=== PATIENT | female | born 1960 | race Caucasian/White ===

== ENCOUNTER → 2016-04-26 | Outpatient (CLI) | payer BC ==
--- NOTE | 2016-04-26 17:19 | XR ---
EXAMINATION TYPE: XR chest 2V DATE OF EXAM: 04/26/2016 5:14 PM COMPARISON: 05/03/2014 HISTORY: Cough TECHNIQUE: Frontal and lateral views of the chest are obtained. FINDINGS: Heart and mediastinum are normal. Lungs are clear. Diaphragm is normal. Bony thorax is int act. IMPRESSION: Normal chest. No change.
== END ==
LOC: RADXRMAIN 16:46
PROVIDERS: ATTEND Family Medicine
DX: J45.31 Mild persistent asthma with (acute) exacerbation (principal)
CPT/HCPCS: 71020

== ENCOUNTER → 2016-06-03 | Outpatient (CLI) | payer BC ==
[2016-06-03 19:32] LABS: Blood Urea Nitrogen 17 mg/dL (7-17); Non-African American GFR(MDRD) >60 (>60 ml/min/1.73 sqM)
--- NOTE | 2016-06-03 20:51 | CT ---
EXAMINATION TYPE: CT chest w con DATE OF EXAM: 06/03/2016 8:12 PM COMPARISON: NONE HISTORY: Pt states of SOB and cough x1 year. CT DLP: 884 mGycm Automated exposure control for dose reduction was used. CONTRAST: CT scan of the chest is performed with IV Contrast, patient injected with 100 mL of Omnipaque 300. Th ere are 3-D post processed images. FINDINGS: The lungs are clear of consolidation. There is no pleural effusion. There is no pericardial effusion. There is no evidence of aortic aneurysm or dissection. I see no filling defects in the pulmonary art eries. There are no hilar masses. There is no mediastinal adenopathy. The bony thorax appears intact. There is some subcutaneous edema over the lower lumbar spine.. IMPRESSION: No evidence of pulmonary embolism. Negative CT scan of the chest. Mild spondylotic hernandez es noted in the thoracic spine. Subcutaneous edema noted in the lower back.
[2016-06-04 04:20] LABS: Clam IgE <0.10 kU/L; Egg White IgE <0.10 kU/L; Peanut IgE <0.10 kU/L; Scallop IgE <0.10 kU/L; Soybean IgE <0.10 kU/L
[2016-06-04 07:28] LABS: Alternaria alternata IgE <0.10 kU/L; Aspergillus fumagatus IgE <0.10 kU/L; Cat Epith & Dander IgE 0.17 kU/L; Cladosporian herbarum IgE <0.10 kU/L; Dermato. farinae IgE <0.10 kU/L; Maple (Box Elder) IgE <0.10 kU/L; Orchard Grs(Cocksfoot) IgE <0.10 kU/L; Ragweed,Common IgE <0.10 kU/L
== END | disposition home or self-care (01) ==
LOC: RADCTMAIN 18:36
PROVIDERS: ATTEND Internal Medicine Critical Care Medicine
DX: R05 Cough (principal)
CPT/HCPCS: 82565; 84520; 86003; 82785; 71260; 36415; Q9967

== ENCOUNTER 2019-02-28 10:00 | Observation (INO) | payer OTHER ==
[2019-02-28] MEDS ORDERED: SODIUM CHLORIDE 0.9% 500 ML 500 ML IV STA (10:30)
--- NOTE | 2019-02-28 10:43 | ED ---
Chest Pain HPI - General Chief Complaint: Chest Pain Stated Complaint: Abnormal EKG Time Seen by Provider: 02/28/19 10:21 Source: patient Mode of arrival: ambulatory Limitations: no limitations - History of Present Illness Initial Comments: Patient is a 58-year-old female presenting to the emergency Department with complaints of intermittent chest pain for 2 days. Patient was sent in by her PCP, Dr. Lane. Patient states her son on Tuesday and since then she has been having intermittent bouts of chest pressure and palpitations. She sta stephanie she has a history of irregular heartbeat and hypertension. She has had multiple stress tests in the past however her last one was approximately 15 years ago in [place]. She states these bouts of chest pressure last anywhere from 30 seconds to a few minutes. She states after she rest for a little bit she feels better. She has not been eating and drinking very much for the past 2 days secondary to the stress. She denies nausea, vomiting. She does admit to mild diarrhea secondary to not eating and taking metformin. She also admits to mild shortness of breath which is chronic in nature secondary to her COPD. She denies any abdominal pain, blurry vision, headache. She has no other complaints at this time. Upon arrival to the ER, her vital signs are stable. - Related Data Home Medications Medication Instructions Recorded Confirmed Atenolol [Tenormin] 50 mg PO DAILY 02/28/19 02/28/19 Atorvastatin [Lipitor] 20 mg PO DAILY 02/28/19 02/28/19 Cranberry Fruit Extract [Cranberry] 500 mg PO DAILY 02/28/19 02/28/19 Latanoprost [Xalatan 0.005%] 1 drop BOTH EYES HS 02/28/19 02/28/19 Meloxicam [Mobic] 15 mg PO DAILY 02/28/19 02/28/19 Multivitamins, Thera [Multivitamin 1 tab PO DAILY 02/28/19 02/28/19 (formulary)] Triamterene-Hctz 37.5-25Mg 1 cap PO DAILY 02/28/19 02/28/19 [Dyazide 37.5-25 Capsule] Zolpidem [Ambien] 10 mg PO HS 02/28/19 02/28/19 clonazePAM [KlonoPIN] 2 mg PO BID PRN 02/28/19 02/28/19 metFORMIN HCL [Glucophage] 500 mg PO BID 02/28/19 02/28/19 Allergies Allergy/AdvReac Type Severity Reaction Status Date / Time codeine Allergy Vomiting Verified 02/28/19 15:04 diphenhydramine Allergy Anaphylaxis Verified 02/28/19 15:04 [From Benadryl] meperidine [From Demerol] Allergy Vomiting Verified 02/28/19 15:04 Penicillins Allergy Anaphylaxis Verified 02/28/19 15:04 Serotonin 5HT-3 Antagonists Allergy Unknown Verified 02/28/19 15:04 Sulfa (Sulfonamide Allergy Anaphylaxis Verified 02/28/19 15:04 Antibiotics) Review of Systems ROS Statement: Those systems with pertinent positive or pertinent negative responses have been documented in the HPI. ROS Other: All systems not noted in ROS Statement are negative. EKG Findings - EKG Comments: EKG Findings:: Ventricular rate 72, purulent of low 152, QTC 466. Sinus rhythm with occasional PVCs. Prolonged QT, no acute ST segment elevations Past Medical History Past Medical History: Asthma, Cancer, COPD, Diabetes Mellitus, Eye Disorder, Hyperlipidemia, Hypertension, Osteoarthritis (OA) Additional Past Medical History / Comment(s): heart arrythmia, uterine cancer(remission) History of Any Multi-Drug Resistant Organisms: None Reported Past Surgical History: Section, Hysterectomy Additional Past Surgical History / Comment(s): ectopic Past Psychological History: Anxiety Smoking Status: Never smoker Past Alcohol Use History: None Reported Past Drug Use History: None Reported General Exam - General Exam Comments Initial Comments: GENERAL: Well-appearing, well-nourished and in no acute distress. HEAD: Atraumatic, normocephalic. EYES: Pupils equal round and reactive to light, extraocular movements intact, sclera anicteric, conjunctiva are normal. ENT: TMs normal, nares patent, oropharynx clear without exudates. Moist mucous membranes. NECK: Normal range of motion, supple without lymphadenopathy or JVD. LUNGS: Breath sounds clear to auscultation bilaterally and equal. No wheezes rales or rhonchi. HEART: Regular rate and rhythm without murmurs, rubs or gallops. ABDOMEN: Soft, nontender, normoactive bowel sounds. No guarding, no rebound. No masses appreciated. : Deferred EXTREMITIES: Normal range of motion, no pitting or edema. No clubbing or cyanosis. NEUROLOGICAL: Cranial nerves II through XII grossly intact. Normal speech, normal gait. PSYCH: Normal mood, normal affect. SKIN: Warm, Dry, normal turgor, no rashes or lesions noted. Limitations: no limitations Course Vital Signs 02/28/19 02/28/19 02/28/19 10:07 11:00 11:30 Temperature 97.7 F Pulse Rate 76 70 65 Respiratory 20 20 15 Rate Blood Pressure 122/83 134/98 121/80 O2 Sat by Pulse 96 95 96 Oximetry 02/28/19 02/28/19 02/28/19 12:00 12:30 13:00 Temperature Pulse Rate 70 70 75 Respiratory 17 12 17 Rate Blood Pressure 122/80 118/75 127/91 O2 Sat by Pulse 95 93 L 96 Oximetry 02/28/19 02/28/19 02/28/19 13:30 14:00 14:30 Temperature Pulse Rate 79 80 69 Respiratory 28 H 24 12 Rate Blood Pressure 117/81 121/76 126/99 O2 Sat by Pulse 93 L 95 95 Oximetry 02/28/19 02/28/19 15:00 15:30 Temperature Pulse Rate 75 83 Respiratory 19 18 Rate Blood Pressure 131/100 121/84 O2 Sat by Pulse 93 L 95 Oximetry Chest Pain [facility] Patient is a 58-year-old female presenting with intermittent chest pain and pressure for 2 days. She was sent in by her PCP today after an abnormal EKG in the office. Her son 2 days ago when her symptoms began. Vital signs are stable upon arrival. Patient has not had chest pain during ER stay. No acute changes on initial EKG. Lab work shows total bilirubin and liver enzymes are slightly elevated, no other acute abnormalities found. I discussed discussed the findings with patient over she is not having any abdominal pain today. Troponin is normal, UA is normal. Chest x-ray shows no acute abnormalities. I discussed these findings with the patient. I recommended patient be admitted for serial troponins as well as possible stress test. Patient is agreeable with this plan of care. Patient will be admitted under Dr. Lane. Case discussed with Dr. Allen. Disposition Clinical Impression: Chest pain Disposition: ADMITTED IP TO THIS HOSP Condition: Stable Is patient prescribed a controlled substance at d/c from ED?: No Referrals: Greg Lane MD [Primary Care Provider] - 1-2 days Decision Date: 02/28/19 Decision Time: 13:57
--- NOTE | 2019-02-28 11:15 | XR ---
EXAMINATION TYPE: XR chest 2V DATE OF EXAM: 02/28/2019 COMPARISON: 04/26/2016 TECHNIQUE: PA and lateral views submitted. HISTORY: Chest pain FINDINGS: The lungs are clear and there is no pneumothorax, pleural effusion, or focal pneumonia. Biapical pl eural thickening stable. Heart size stable. Arthropathy of the shoulders and hypertrophic degenerativ e change of the spine. IMPRESSION: 1. No acute process.
[2019-02-28 11:46] LABS: ALT 63 U/L (4-34); AST 55 U/L (14-36); African American GFR (CKD) >90 (>60 ml/min/1.73 sqM); Albumin 4.3 g/dL (3.5-5.0); Alkaline Phosphatase 106 U/L (38-126); Anion Gap 11 mmol/L; Blood Urea Nitrogen 16 mg/dL (7-17); Calcium 9.7 mg/dL (8.4-10.2); Carbon Dioxide 22 mmol/L (22-30); Chloride 105 mmol/L (98-107); Glucose 161 mg/dL (74-99); Magnesium 1.6 mg/dL (1.6-2.3); Non-African American GFR(CKD) >90 (>60 ml/min/1.73 sqM); Potassium 4.3 mmol/L (3.5-5.1); Sodium 138 mmol/L (137-145); Total Bilirubin 1.4 mg/dL (0.2-1.3); Total Protein 6.9 g/dL (6.3-8.2)
[2019-02-28 11:49] LABS: Basophils % (A) 1 %; Eosinophils # (A) 0.1 k/uL (0-0.7); Eosinophils % (A) 1 %; HCT 46.5 % (34.0-46.0); HGB 15.2 gm/dL (11.4-16.0); Lymphocytes # (A) 1.7 k/uL (1.0-4.8); Lymphocytes % (A) 26 %; MCHC 32.8 g/dL (31.0-37.0); MCV 94.6 fL (80.0-100.0); Mean Platelet Volume 8.1; Monocytes # (A) 0.3 k/uL (0-1.0); Monocytes % (A) 4 %; Neutrophils # (A) 4.4 k/uL (1.3-7.7); Neutrophils % (A) 67 %; Platelet Count 229 k/uL (150-450); RBC 4.91 m/uL (3.80-5.40); RDW 12.7 % (11.5-15.5); WBC 6.6 k/uL (3.8-10.6)
[2019-02-28 11:57] LABS: Appearance,Urine Clear (Clear); Bilirubin,Urine Negative (Negative); Blood,Urine Negative (Negative); Color,Urine Yellow; Glucose,Urine (UA) Negative (Negative); Ketones,Urine Negative (Negative); Leukocyte Esterase,Urine Negative (Negative); Nitrite,Urine Negative (Negative); Protein,Urine Negative (Negative); Specific Gravity,Urine 1.021 (1.001-1.035); Urobilinogen,Urine <2.0 mg/dL (<2.0)
[2019-02-28 11:59] LABS: INR 0.9 (<1.2); Partial Thromboplastin Time 23.2 sec (22.0-30.0); Prothrombin Time 9.7 sec (9.0-12.0)
[2019-02-28] MEDS ORDERED: NITROGLYCERIN SL TABS 0.4 MG TAB SUBLINGUAL PRN (13:57)
[2019-02-28] MEDS ORDERED: ACETAMINOPHEN TAB 325 MG TAB PO PRN (13:57)
[2019-03-01 00:12] VITALS: RESP 18
[2019-03-01 06:20] LABS: Cholesterol 111 mg/dL (<200); HDL Cholesterol 29 mg/dL (40-60); LDL Cholesterol,Calculated 60 mg/dL (0-99); Triglycerides 112 mg/dL (<150)
[2019-03-01 06:43] LABS: Glucose,Whole Blood 156 mg/dL (75-99)
[2019-03-01 07:58] VITALS: BP 111/71; PULSE 58; TEMP 97.6
[2019-03-01] MEDS ORDERED: clonazePAM 1 MG TAB PO PRN (08:04)
[2019-03-01] MEDS ORDERED: metFORMIN 500 MG TAB PO SCH (09:00)
[2019-03-01] MEDS ORDERED: ATORVASTATIN 20 MG TAB PO SCH (09:00)
[2019-03-01] MEDS ORDERED: TRIAMTERENE-HCTZ 37.5-25MG 1 EACH CAP PO SCH (09:00)
[2019-03-01] MEDS ORDERED: MULTIVITAMINS, THERA 1 EACH TAB PO SCH (09:00)
[2019-03-01] MEDS ORDERED: ASPIRIN 325 MG TAB PO SCH (09:00)
[2019-03-01] MEDS ORDERED: DOBUTamine DRIP for NUC MED 500 MG in DEXTROSE/WATER 1 250ML.BAG IV ONE (09:51)
--- NOTE | 2019-03-01 10:19 | P.CRDCN ---
History of Present Illness History of present illness: HISTORY OF PRESENTING ILLNESS This is a pleasant 58-year-old female past medical history significant for hypertension, palpitations, COPD, diabetes mellitus, dyslipidemia, arthritis and morbid obesity. She does not follow in the office with a hospital food service worker. She moved here from [place] 5 years ago. When she lived there she did follow with a hospital food service worker regularly due to her palpitations. She states she has undergone stress testing in the past but was over 5 years ago. We have been asked to see in consultation for chest pain. She unfortunately lost her son on Tuesday who lives in [place]. She has been extremely upset and emotional since this happened. On Tuesday she began feeling frequent palpitations associated with a heavy sensation in her chest in the mid-sternal region. There was no radiation to the arms, back, neck or jaw. At times she would feel short of breath as well. She denies dizziness, nausea, vomiting or diaphoresis. She saw her PCP in the office yesterday and was sent in for further evaluation. She has not had any further symptoms of chest pain while in the hospital. DIAGNOSTICS EKG reveals sinus mechanism with no acute ST or T-wave changes. Telemetry tracings unremarkable. Chest xray negative for an acute process. Laboratory reviewed, cardiac enzymes negative x3, CBC unremarkable, sodium 138, potassium 4.3, creatinine 0.57, total bilirubin 1.4, AST 55, ALT 63, LDL 60. Current cardiac medications include atenolol 50 mg daily, atorvastatin 20 mg daily and dyazide 37.5/25 mg daily. REVIEW OF SYSTEMS At the time of my exam: CONSTITUTIONAL: Denies fever or chills. CARDIOVASCULAR: Denies chest pain, shortness of breath, orthopnea, PND or pa lpitations. RESPIRATORY: Denies cough. GASTROINTESTINAL: Denies abdominal pain, diarrhea, constipation, nausea or vomiting. MUSCULOSKELETAL: Denies myalgias. NEUROLOGIC: Denies numbness, tingling or weakness. ENDOCRINE: Denies fatigue, weight change, polydipsia or polyurina. GENITOURINARY: Denies burning, hematuria or urgency with micturation. HEMATOLOGIC: Denies history of anemia or bleeding. PHYSICAL EXAMINATION Blood pressure 111/71 heart rate 58 afebrile and maintaining oxygen saturation on room air. CONSTITUTIONAL: No apparent distress. Morbidly obese. HEENT: Head is normocephalic. Pupils are equal, round. Sclerae anicteric. Mucous membranes of the mouth are moist. No JVD. No carotid bruit. CHEST EXAMINATION: Lungs are clear to auscultation. No chest wall tenderness is noted on palpation or with deep breathing. HEART EXAMINATION: Regular rate and rhythm. S1, S2 heard. Faint systolic ejection murmur at the left sternal border, no gallops or rub. ABDOMEN: Soft, nontender. Positive bowel sounds. EXTREMITIES: 2+ peripheral pulses, no lower extremity edema and no calf tenderness. NEUROLOGIC EXAMINATION: Patient is awake, alert and oriented x3. ASSESSMENT Chest pain, atypical for angina. An acute event has been ruled out. Palpitations, telemetry tracings unremarkable Hypertension Dyslipidemia Diabetes mellitus COPD Morbid obesity, BMI 53 PLAN An acute coronary event has been ruled out. Obtain 2D echocardiogram and doppler study to assess cardiac structure and function. Perform dobutamine stress echo to assess for stress induced ischemia. Telemetry tracings unremarkable. If stress test is normal she is stable for discharge from a cardiac perspective. Symptoms likely a stress reaction due to significant tragic loss of her son. Thank you kindly for this consultation. Nurse Practitioner note has been reviewed, I agree with a documented findings and plan of care. Patient was seen and examined. Past Medical History Past Medical History: Asthma, Cancer, COPD, Diabetes Mellitus, Eye Disorder, Hyperlipidemia, Hypertension, Osteoarthritis (OA) Additional Past Medical History / Comment(s): heart arrythmia, uterine cancer(remission) History of Any Multi-Drug Resistant Organisms: None Reported Past Surgical History: Section, Hysterectomy Additional Past Surgical History / Comment(s): ectopic Past Psychological History: Anxiety Smoking Status: Never smoker Past Alcohol Use History: None Reported Past Drug Use History: None Reported Medications and Allergies Home Medications Medication Instructions Recorded Confirmed Type Atenolol [Tenormin] 50 mg PO DAILY 02/28/19 02/28/19 History Atorvastatin [Lipitor] 20 mg PO DAILY 02/28/19 02/28/19 History Cranberry Fruit Extract [Cranberry] 500 mg PO DAILY 02/28/19 02/28/19 History Latanoprost [Xalatan 0.005%] 1 drop BOTH EYES HS 02/28/19 02/28/19 History Meloxicam [Mobic] 15 mg PO DAILY 02/28/19 02/28/19 History Multivitamins, Thera [Multivitamin 1 tab PO DAILY 02/28/19 02/28/19 History (formulary)] Triamterene-Hctz 37.5-25Mg 1 cap PO DAILY 02/28/19 02/28/19 History [Dyazide 37.5-25 Capsule] Zolpidem [Ambien] 10 mg PO HS 02/28/19 02/28/19 History clonazePAM [KlonoPIN] 2 mg PO BID PRN 02/28/19 02/28/19 History metFORMIN HCL [Glucophage] 500 mg PO BID 02/28/19 02/28/19 History Allergies Allergy/AdvReac Type Severity Reaction Status Date / Time codeine Allergy Vomiting Verified 02/28/19 15:04 diphenhydramine Allergy Anaphylaxis Verified 02/28/19 15:04 [From Benadryl] meperidine [From Demerol] Allergy Vomiting Verified 02/28/19 15:04 Penicillins Allergy Anaphylaxis Verified 02/28/19 15:04 Serotonin 5HT-3 Antagonists Allergy Unknown Verified 02/28/19 15:04 Sulfa (Sulfonamide Allergy Anaphylaxis Verified 02/28/19 15:04 Antibiotics) Physical Exam Vitals: Vital Signs Temp Pulse Pulse Resp BP BP BP 03/01/19 09:11 18 03/01/19 07:05 97.6 F 58 L 18 111/71 03/01/19 05:53 97/57 03/01/19 04:00 97.7 F 66 18 116/71 03/01/19 03:48 69 18 03/01/19 00:00 97.7 F 69 18 95/59 02/28/19 23:30 69 18 02/28/19 20:20 97.3 F L 76 16 120/82 02/28/19 17:30 62 19 105/84 02/28/19 17:00 68 18 129/91 02/28/19 16:30 69 8 L 112/79 02/28/19 16:00 74 14 115/95 02/28/19 15:30 83 18 121/84 02/28/19 15:00 75 19 131/100 02/28/19 14:30 69 12 126/99 02/28/19 14:00 80 24 121/76 02/28/19 13:30 79 28 H 117/81 01/08/20 13:00 75 17 127/91 01/08/20 12:30 70 12 118/75 02/28/19 12:00 70 17 122/80 02/28/19 11:30 65 15 121/80 02/28/19 11:00 70 20 134/98 02/28/19 10:07 97.7 F 76 20 122/83 Pulse Ox 03/01/19 09:11 03/01/19 07:05 95 03/01/19 05:53 03/01/19 04:00 95 03/01/19 03:48 03/01/19 00:00 96 02/28/19 23:30 02/28/19 20:20 95 02/28/19 17:30 96 02/28/19 17:00 94 L 02/28/19 16:30 93 L 02/28/19 16:00 95 02/28/19 15:30 95 02/28/19 15:00 93 L 02/28/19 14:30 95 02/28/19 14:00 95 02/28/19 13:30 93 L 02/28/19 13:00 96 02/28/19 12:30 93 L 02/28/19 12:00 95 02/28/19 11:30 96 02/28/19 11:00 95 02/28/19 10:07 96 Intake and Output 02/28/19 03/01/19 03/01/19 22:59 06:59 14:59 Intake Total 240 Balance 240 Intake: Oral 240 Other: Voiding Method Toilet # Voids 1 Weight 140.16 kg Results 02/28/19 10:53 02/28/19 10:53 Cardiac Enzymes 02/28/19 02/28/19 02/28/19 Range/Units 10:53 10:53 16:09 AST 55 H (14-36) U/L Troponin I <0.012 <0.012 (0.000-0.034) ng/mL 02/28/19 Range/Units 23:13 AST (14-36) U/L Troponin I <0.012 (0.000-0.034) ng/mL Coagulation 02/28/19 Range/Units 10:53 PT 9.7 (9.0-12.0) sec APTT 23.2 (22.0-30.0) sec Lipids 03/01/19 Range/Units 05:36 Triglycerides 112 (<150) mg/dL Cholesterol 111 (<200) mg/dL HDL Cholesterol 29 L (40-60) mg/dL CBC 02/28/19 Range/Units 10:53 WBC 6.6 (3.8-10.6) k/uL RBC 4.91 (3.80-5.40) m/uL Hgb 15.2 (11.4-16.0) gm/dL Hct 46.5 H (34.0-46.0) % Plt Count 229 (150-450) k/uL Comprehensive Metabolic Panel 02/28/19 Range/Units 10:53 Sodium 138 (137-145) mmol/L Potassium 4.3 (3.5-5.1) mmol/L Chloride 105 (98-107) mmol/L Carbon Dioxide 22 (22-30) mmol/L BUN 16 (7-17) mg/dL Creatinine 0.57 (0.52-1.04) mg/dL Glucose 161 H (74-99) mg/dL Calcium 9.7 (8.4-10.2) mg/dL AST 55 H (14-36) U/L ALT 63 H (4-34) U/L Alkaline Phosphatase 106 (38-126) U/L Total Protein 6.9 (6.3-8.2) g/dL Albumin 4.3 (3.5-5.0) g/dL Current Medications Generic Name Dose Route Start Last Admin Trade Name Freq PRN Reason Stop Dose Admin Acetaminophen 650 mg 02/28/19 13:57 Tylenol Tab PO Q4HR PRN Pain Aspirin 325 mg 03/01/19 09:00 Aspirin PO DAILY [facility] Atorvastatin Calcium 20 mg 03/01/19 09:00 Lipitor PO DAILY [facility] Clonazepam 2 mg 03/01/19 08:04 Klonopin PO BID PRN Anxiety Dobutamine HCl/Dextrose 500 mg 250 mls @ 42.048 mls/hr 03/01/19 09:51 / IV Solution IV 03/01/19 15:47 .[id number] ONE Protocol 10 MCG/KG/MIN Latanoprost 1 drops 03/01/19 21:00 Xalatan 0.005% BOTH EYES HS [facility] Metformin HCl 500 mg 03/01/19 09:00 Glucophage PO BID [facility] Multivitamins 1 each 03/01/19 09:00 Theragran PO DAILY [facility] Nitroglycerin 0.4 mg 02/28/19 13:57 Nitrostat SUBLINGUAL Q5M PRN Chest Pain Triamterene/HCTZ 1 each 03/01/19 09:00 Dyazide PO DAILY [facility] Zolpidem Tartrate 10 mg 03/01/19 21:00 Ambien PO HS [facility] Intake and Output 02/28/19 03/01/19 03/01/19 22:59 06:59 14:59 Intake Total 240 Balance 240 Intake: Oral 240 Other: Voiding Method Toilet # Voids 1 Weight 140.16 kg 02/28/19 10:53 02/28/19 10:53
[2019-03-01] MEDS ORDERED: TRIAMTERENE HCTZ PO SCH ×2 (11:00→11:30)
--- NOTE | 2019-03-01 11:01 | ECHOF ---
Referral Reason:cp MEASUREMENTS -------- HEIGHT: 160.0 cm WEIGHT: 140.2 kg BP: RVIDd: 3.1 cm (< 3.3) IVSd: 1.2 cm (0.6 - 1.1) LVIDd: 4.4 cm (3.9 - 5.3) LVPWd: 1.5 cm (0.6 - 1.1) IVSs: 2.0 cm LVIDs: 1.8 cm LVPWs: 2.0 cm Ao Diam: 3.1 cm (2.0 - 3.7) AV Cusp: 2.3 cm (1.5 - 2.6) LA Diam: 3.9 cm (2.7 - 3.8) MV EXCURSION: 23.601 mm (> 18.000) MV EF SLOPE: 99 mm/s (70 - 150) EPSS: 0.3 cm MV E Vincent: 1.06 m/s MV DecT: 207 ms MV A Vincent: 0.85 m/s MV E/A Ratio: 1.25 RAP: 5.00 mmHg RVSP: 11.59 mmHg FINDINGS -------- Sinus rhythm. This was a technically difficult study with suboptimal views. The left ventricular size is normal. There is mild concentric left ventricular hypertrophy. Overa ll left ventricular systolic function is normal with, an EF between 55 - 60 %. The right ventricle is normal in size. The left atrial size is normal. The right atrial size is normal. 5.0mg of Lumason was utilized for enhancement of images The aortic valve is trileaflet and appears structurally normal. The mitral valve is normal. There is trace mitral regurgitation. The tricuspid valve appears structurally normal. Trace tricuspid regurgitation present. Right aidee tricular systolic pressure is normal at < 35 mmHg. There is no pulmonic regurgitation present. The aortic root size is normal. There is no pericardial effusion. CONCLUSIONS -------- 1. Sinus rhythm. 2. This was a technically difficult study with suboptimal views. 3. The left ventricular size is normal. 4. There is mild concentric left ventricular hypertrophy. 5. Overall left ventricular systolic function is normal with, an EF between 55 - 60 %. 6. The right ventricle is normal in size. 7. The left atrial size is normal. 8. The right atrial size is normal. 9. 5.0mg of Lumason was utilized for enhancement of images 10. The aortic valve is trileaflet and appears structurally normal. 11. The mitral valve is normal. 12. There is trace mitral regurgitation. 13. The tricuspid valve appears structurally normal. 14. Trace tricuspid regurgitation present. 15. Right ventricular systolic pressure is normal at < 35 mmHg. 16. There is no pulmonic regurgitation present. 17. The aortic root size is normal. 18. There is no pericardial effusion. BURGL[employer] ALARM INSPECTOR: Kelly Puga RDCS
[2019-03-01 11:41] LABS: Glucose,Whole Blood 140 mg/dL (75-99)
--- NOTE | 2019-03-01 12:26 | P.HPIM ---
History of Present Illness 58-year-old female on was sent to the emergency room from family physician office with complaints of chest pain. Patient is doing with sudden 28-year-old son from [place]. Patient's to have evaluation by cardiology Review of Systems Cardiovascular: Reports chest pain, Reports palpitations Past Medical History Past Medical History: Asthma, Cancer, COPD, Diabetes Mellitus, Eye Disorder, Hyperlipidemia, Hypertension, Osteoarthritis (OA) Additional Past Medical History / Comment(s): heart arrythmia, uterine cancer( remission) History of Any Multi-Drug Resistant Organisms: None Reported Past Surgical History: Section, Hysterectomy Additional Past Surgical History / Comment(s): ectopic Past Psychological History: Anxiety Smoking Status: Never smoker Past Alcohol Use History: None Reported Past Drug Use History: None Reported Medications and Allergies Home Medications Medication Instructions Recorded Confirmed Type Atenolol [Tenormin] 50 mg PO DAILY 02/28/19 02/28/19 History Atorvastatin [Lipitor] 20 mg PO DAILY 02/28/19 02/28/19 History Cranberry Fruit Extract [Cranberry] 500 mg PO DAILY 02/28/19 02/28/19 History Latanoprost [Xalatan 0.005%] 1 drop BOTH EYES HS 02/28/19 02/28/19 History Meloxicam [Mobic] 15 mg PO DAILY 02/28/19 02/28/19 History Multivitamins, Thera [Multivitamin 1 tab PO DAILY 02/28/19 02/28/19 History (formulary)] Triamterene-Hctz 37.5-25Mg 1 cap PO DAILY 02/28/19 02/28/19 History [Dyazide 37.5-25 Capsule] Zolpidem [Ambien] 10 mg PO HS 02/28/19 02/28/19 History clonazePAM [KlonoPIN] 2 mg PO BID PRN 02/28/19 02/28/19 History metFORMIN HCL [Glucophage] 500 mg PO BID 02/28/19 02/28/19 History Allergies Allergy/AdvReac Type Severity Reaction Status Date / Time codeine Allergy Vomiting Verified 02/28/19 15:04 diphenhydramine Allergy Anaphylaxis Verified 02/28/19 15:04 [From Benadryl] meperidine [From Demerol] Allergy Vomiting Verified 02/28/19 15:04 Penicillins Allergy Anaphylaxis Verified 02/28/19 15:04 Serotonin 5HT-3 Antagonists Allergy Unknown Verified 02/28/19 15:04 Sulfa (Sulfonamide Allergy Anaphylaxis Verified 02/28/19 15:04 Antibiotics) Physical Exam Vitals: Vital Signs Temp Pulse Pulse Resp BP BP BP 03/01/19 09:11 18 03/01/19 07:05 97.6 F 58 L 18 111/71 03/01/19 05:53 97/57 03/01/19 04:00 97.7 F 66 18 116/71 03/01/19 03:48 69 18 03/01/19 00:00 97.7 F 69 18 95/59 02/28/19 23:30 69 18 02/28/19 20:20 97.3 F L 76 16 120/82 02/28/19 17:30 62 19 105/84 02/28/19 17:00 68 18 129/91 02/28/19 16:30 69 8 L 112/79 02/28/19 16:00 74 14 115/95 02/28/19 15:30 83 18 121/84 02/28/19 15:00 75 19 131/100 02/28/19 14:30 69 12 126/99 02/28/19 14:00 80 24 121/76 02/28/19 13:30 79 28 H 117/81 02/28/19 13:00 75 17 127/91 02/28/19 12:30 70 12 118/75 Pulse Ox 03/01/19 09:11 03/01/19 07:05 95 03/01/19 05:53 03/01/19 04:00 95 03/01/19 03:48 03/01/19 00:00 96 02/28/19 23:30 02/28/19 20:20 95 02/28/19 17:30 96 02/28/19 17:00 94 L 02/28/19 16:30 93 L 02/28/19 16:00 95 02/28/19 15:30 95 02/28/19 15:00 93 L 02/28/19 14:30 95 02/28/19 14:00 95 02/28/19 13:30 93 L 02/28/19 13:00 96 02/28/19 12:30 93 L Intake and Output 02/28/19 03/01/19 03/01/19 22:59 06:59 14:59 Intake Total 240 Balance 240 Intake: Oral 240 Other: Voiding Method Toilet # Voids 1 Weight 140.16 kg 140.16 kg - Constitutional General appearance: mild distress - EENT Eyes: PERRLA Ears: bilateral: normal - Neck Neck: normal ROM - Respiratory Respiratory: bilateral: CTA - Cardiovascular Rhythm: regular - Gastrointestinal General gastrointestinal: soft - Integumentary Integumentary: normal - Neurologic Neurologic: CNII-XII intact - Musculoskeletal Musculoskeletal: gait normal - Psychiatric Psychiatric: A&O x's 3, appropriate affect Results CBC & Chem 7: 02/28/19 10:53 02/28/19 10:53 Labs: Abnormal Lab Results - Last 24 Hours (Table) 03/01/19 03/01/19 03/01/19 Range/Units 05:36 06:41 11:40 POC Glucose (mg/dL) 156 H 140 H (75-99) mg/dL HDL Cholesterol 29 L (40-60) mg/dL Chest x-ray: report reviewed Thrombosis Risk Factor Assmnt - Choose All That Apply Any of the Below Risk Factors Present?: Yes Each Factor Represents 1 point: Age 41-60 years, Obesity (BMI >25) Other Risk Factors: No Other congenital or acquired thrombophilia - If yes, enter type in comment: No Thrombosis Risk Factor Assessment Total Risk Factor Score: 2 Thrombosis Risk Factor Assessment Level: Low Risk Assessment and Plan Plan: Assessment Chest pain atypical troponins negative 3 Grief reaction History of asthma Uterine cancer COPD Diabetes type 2 Morbid obesity BMI 53.9 Hyperlipidemia Hypertension Osteoarthritis Plan Patient has had stress tests awaiting results Hopeful discharge soon
--- NOTE | 2019-03-01 14:08 | ECHOS ---
STRESS ECHOCARDIOGRAM INDICATIONS: Chest pain. BASELINE HEART RATE: 63 BASELINE BLOOD PRESSURE: 122/81 MAXIMUM HEART RATE: 145 MAXIMUM BLOOD PRESSURE: 173/43 85% MPHR: 139 100% MPHR: 163 MAXIMUM STAGE REACHED: II TOTAL EXERCISE TIME: 8:40 CLINICAL INFORMATION: Patient was exercised. The dobutamine echocardiographic study was performed. Peak heart rate of 145 was achieved. Maximum blood pressure of 173/43 mmHg was noted. Resting EKG shows normal sinus rhythm with normal WA interval and QRS duration and normal ST-T waves. During dobutamine infusion upsloping ST segments were noted. Isolated PVCs were noted. The baseline echocardiographic images reveals normal left ventricular chamber size with normal left ventricular systolic function in the immediate postexercise period. Normal increase in the wall thickness and contractility is noted. FINAL IMPRESSION: 1. This dobutamine stress echocardiographic study is negative for stress-induced ischemia. 2. Two isolated premature ventricular contractions were noted. MMODL / IJN: [id number] /
--- NOTE | 2019-03-01 16:35 | P.DS ---
Providers Date of admission: 02/28/19 14:33 Expected date of discharge: 03/01/19 Attending physician: Greg Lane Consults: 02/28/19 13:57 Consult Physician Urgent Consulting Provider: Nikolas Vuong Consult Reason/Comments: Chest pain Do you want consulting provider notified?: Yes Primary care physician: Greg Lane Hospital Course: 58 year old female admitted from ER for chest pain. Acute grief reaction son just . Evaluated by cardiology cleared for discharge assessment chest pain atypical troponin negative x 3 Hx asthma uterine cancer COPD DM II hyperlipemia hypertension osteoarthritis obesity bmi 53 Plan Follow up with Dr Joaquina Lane and cardiology Patient Condition at Discharge: Stable Plan - Discharge Summary Discharge Rx Participant: No New Discharge Prescriptions: New Aspirin 325 mg PO DAILY tab Acetaminophen Tab [Tylenol] 650 mg PO Q4HR PRN tab PRN Reason: Pain Continue Zolpidem [Ambien] 10 mg PO HS Triamterene-Hctz 37.5-25Mg [Dyazide 37.5-25 Capsule] 1 cap PO DAILY metFORMIN HCL [Glucophage] 500 mg PO BID clonazePAM [KlonoPIN] 2 mg PO BID PRN PRN Reason: Anxiety Multivitamins, Thera [Multivitamin (formulary)] 1 tab PO DAILY Latanoprost [Xalatan 0.005%] 1 drop BOTH EYES HS Cranberry Fruit Extract [Cranberry] 500 mg PO DAILY Atorvastatin [Lipitor] 20 mg PO DAILY Discontinued Meloxicam [Mobic] 15 mg PO DAILY Atenolol [Tenormin] 50 mg PO DAILY Discharge Medication List Atorvastatin [Lipitor] 20 mg PO DAILY 02/28/19 [History] Cranberry Fruit Extract [Cranberry] 500 mg PO DAILY 02/28/19 [History] Latanoprost [Xalatan 0.005%] 1 drop BOTH EYES HS 02/28/19 [History] Multivitamins, Thera [Multivitamin (formulary)] 1 tab PO DAILY 02/28/19 [History] Triamterene-Hctz 37.5-25Mg [Dyazide 37.5-25 Capsule] 1 cap PO DAILY 02/28/19 [History] Zolpidem [Ambien] 10 mg PO HS 02/28/19 [History] clonazePAM [KlonoPIN] 2 mg PO BID PRN 02/28/19 [History] metFORMIN HCL [Glucophage] 500 mg PO BID 02/28/19 [History] Acetaminophen Tab [Tylenol] 650 mg PO Q4HR PRN tab 03/01/19 [Rx] Aspirin 325 mg PO DAILY tab 03/01/19 [Rx] Follow up Appointment(s)/Referral(s): Greg Lane MD [Primary Care Provider] - 1-2 days Ruby Robb MD [STAFF PHYSICIAN] - 2 Weeks Patient Instructions/Handouts: Chest Pain (GEN) Discharge Disposition: HOME SELF-CARE
[2019-03-01] MEDS ORDERED: LATANOPROST 0.005% OPHTH DROPS 2.5 ML BTL BOTH EYES SCH (21:00)
[2019-03-01] MEDS ORDERED: ZOLPIDEM 10 MG TAB PO SCH (21:00)
== END 2019-03-01 14:33 | disposition home or self-care (01) ==
LOC: EC 10:00 → 1SOBS 14:33
PROVIDERS: ADMIT Family Medicine; ATTEND Family Medicine
DX: R07.89 Other chest pain (principal); F43.20 Adjustment disorder, unspecified; E11.9 Type 2 diabetes mellitus without complications; E66.01 Morbid (severe) obesity due to excess calories; E78.5 Hyperlipidemia, unspecified; I10 Essential (primary) hypertension; J44.9 Chronic obstructive pulmonary disease, unspecified; M19.90 Unspecified osteoarthritis, unspecified site; Z68.43 Body mass index [BMI] 50.0-59.9, adult; Z79.1 Long term (current) use of non-steroidal anti-inflammatories (NSAID); Z79.84 Long term (current) use of oral hypoglycemic drugs; Z79.899 Other long term (current) drug therapy; Z85.42 Personal history of malignant neoplasm of other parts of uterus; Z90.710 Acquired absence of both cervix and uterus; Z88.5 Allergy status to narcotic agent; Z88.0 Allergy status to penicillin; Z88.2 Allergy status to sulfonamides; Z88.8 Allergy status to other drugs, medicaments and biological substances
CPT/HCPCS: 93005 ×2; 96360; 99285; 36415; 93306; 93351; 83880; 80061; 80053; 83735; 84484; 85025; 85610; 85730; 81003; 71046; G0378 ×2; J1250; Q9950

== ENCOUNTER → 2020-09-05 | Outpatient (CLI) | payer OTHER ==
--- NOTE | 2020-09-09 08:20 | MM ---
Reason for exam: screening (asymptomatic). Last mammogram was performed 5 years and 4 months ago. History: Patient is postmenopausal and has history of endometrial cancer at age 45. Physical Findings: A clinical breast exam by your physician is recommended on an annual basis and results should be correlated with mammographic findings. MG Screening Mammo w CAD Bilateral CC and MLO view(s) were taken. Prior study comparison: May 21, 2015, bilateral MG screening mammo w CAD. There are scattered fibroglandular densities. There is a new mass in the left lower outer breast and ultrasound is recommended. ASSESSMENT: Incomplete: need additional imaging evaluation, BI-RAD 0 RECOMMENDATION: Ultrasound of the left breast. [facility] will attempt to contact patient to return for ultrasound.
== END | disposition home or self-care (01) ==
LOC: RADMAMWWP 15:46
PROVIDERS: ATTEND Family Medicine
DX: Z12.31 Encounter for screening mammogram for malignant neoplasm of breast (principal); Z78.0 Asymptomatic menopausal state; Z85.42 Personal history of malignant neoplasm of other parts of uterus
CPT/HCPCS: 77067

== ENCOUNTER → 2020-09-12 | Outpatient (CLI) | payer OTHER ==
--- NOTE | 2020-09-12 08:34 | USB ---
EXAMINATION TYPE: US breast workup limited LT DATE OF EXAM: 09/12/2020 COMPARISON: 09/05/2020, 05/21/2015 CLINICAL HISTORY: R92.8 abnormal mammogram. Findings: The left breast was scanned with ultrasound from 3-6 o'clock and in the retroareolar region and axill a. In the left breast at 3:00 12 cm from the nipple, there is a 1.2 x 0.3 x 0.4 cm anechoic lesion wh ich may represent the asymmetry seen on mammogram and likely represents a minimally complicated cyst versus dilated duct. A follow-up left breast ultrasound and diagnostic mammogram are recommended in 6 months. IMPRESSION: Likely cyst of the left breast at 3:00 may correspond to the asymmetry on mammogram and follow-up lef t breast ultrasound and diagnostic mammogram are recommended in 6 months. BI-RADS 3, probably benign.
== END | disposition home or self-care (01) ==
LOC: RADUSWWP 07:19
PROVIDERS: ATTEND Family Medicine
DX: N64.89 Other specified disorders of breast (principal)

== ENCOUNTER → 2021-03-17 | Outpatient (CLI) | payer OTHER ==
--- NOTE | 2021-03-17 09:11 | MM ---
Reason for exam: follow-up at short interval from prior study. Last mammogram was performed 6 months ago. History: Patient is postmenopausal and has history of endometrial cancer at age 45. Physical Findings: Nurse did not find any significant physical abnormalities on exam. MG 3D Diag Mammo W/Cad COURT Bilateral CC and MLO view(s) were taken. XCCL view(s) were taken of the left breast. Prior study comparison: September 05, 2020, bilateral MG screening mammo w CAD. May 21, 2015, bilateral MG screening mammo w CAD. There are scattered fibroglandular densities. Stable 4mm 9-10 o'clock left nodule now with thin rim calcification suggesting a benign oil cyst. Density more anteriorly is unchanged for 6 months at the lower outer quadrant. Additional 1 year follow up recommended. These results were verbally communicated with the patient and result sheet given to the patient on 03/17/21. ASSESSMENT: Incomplete: need additional imaging evaluation, BI-RAD 0 RECOMMENDATION: Ultrasound of the left breast.
--- NOTE | 2021-03-17 09:13 | USB ---
Reason for exam: additional evaluation requested from abnormal screening. History: Patient is postmenopausal and has history of endometrial cancer at age 45. US Breast Limited LT Left limited breast ultrasound including focal area of concern, retroareolar and axilla demonstrates a 0.6 x 0.4 x 0.8cm lesion at 3 o'clock, probably a deep cyst. Scanned 12-3 o'clock. These results were verbally communicated with the patient and result sheet given to the patient on 03/17/21. ASSESSMENT: Probably benign, BI-RAD 3 RECOMMENDATION: Follow-up diagnostic mammogram of both breasts in 1 year.
== END | disposition home or self-care (01) ==
LOC: RADUSWWP 07:12
PROVIDERS: ATTEND Family Medicine
DX: R92.1 Mammographic calcification found on diagnostic imaging of breast (principal); N63.22 Unspecified lump in the left breast, upper inner quadrant; Z78.0 Asymptomatic menopausal state
CPT/HCPCS: 77062; 77066

== ENCOUNTER → 2022-02-19 | Outpatient (CLI) | payer BC ==
--- NOTE | 2022-02-19 11:29 | XR ---
EXAMINATION TYPE: XR knee 4V RT DATE OF EXAM: 02/19/2022 COMPARISON: NONE HISTORY: 61-year-old female M25.561, right knee pain TECHNIQUE: 4 views FINDINGS: Tricompartmental degenerative change. Moderate narrowing of cartilage and joint space in th e medial compartment and mild to moderate in the patellofemoral compartment. The patella shows minima l lateral translation but is otherwise situated along the trochlear groove. There may be a small supr apatellar joint effusion. Extensor mechanism appears intact. No acute fracture, subluxation, dislocat ion. IMPRESSION: Tricompartmental osteoarthrosis, moderate in the medial compartment and then patellofemoral compartme nt. There may be a small knee joint effusion which is nonspecific and may be reactive. No acute osseo us abnormality seen. If concern for internal derangement, MRI can be performed.
== END | disposition home or self-care (01) ==
LOC: RADXRMAIN 10:49
PROVIDERS: ATTEND Family Medicine
DX: M17.11 Unilateral primary osteoarthritis, right knee (principal)

== ENCOUNTER → 2022-03-04 | Outpatient (CLI) | payer BC ==
--- NOTE | 2022-03-06 16:24 | MM ---
Reason for Exam: Screening (asymptomatic). Last screening mammogram was performed 12 month(s) ago. Patient History: Menarche at age 12. First Full-Term at age 29. Left ovary removed at age 45. Right ovary removed at age 45. Hysterectomy at age 45. Postmenopausal. Endometrial cancer, age 45. Risk Values: Carlita 5 year model risk: 1.8%. NCI Lifetime model risk: 8.9%. Prior Study Comparison: 05/21/2015 Bilateral Screening Mammogram, [facility]. 09/05/2020 Bilateral Screening Mammogram, [facility]. 03/17/2021 Bilateral Diagnostic Mammogram, [facility]. Tissue Density: There are scattered fibroglandular densities. Findings: Analyzed By CAD. There are a few benign oil cyst calcifications on either side. There is no suspicious group of microcalcifications or new suspicious mass in either breast. Overall Assessment: Benign, BI-RAD 2 Management: Screening Mammogram of both breasts in 1 year. 1. Patient should continue monthly self breast exams. 2. A clinical breast exam by your physician is recommended on an annual basis. 3. This exam should not preclude additional follow-up of suspicious palpable abnormalities. Electronically signed and approved by: Werner Osorio M.D. Radiologist
== END | disposition home or self-care (01) ==
LOC: RADMAMWWP 13:24
PROVIDERS: ATTEND Family Medicine
DX: Z12.31 Encounter for screening mammogram for malignant neoplasm of breast (principal); Z78.0 Asymptomatic menopausal state
CPT/HCPCS: 77063; 77067

== ENCOUNTER → 2022-10-01 | Outpatient (CLI) | payer BC ==
[2022-10-01 20:10] LABS: Basophils # (A) 0.02 X 10*3/uL (0.00-0.10); Basophils % (A) 0.3 %; Eosinophils # (A) 0.15 X 10*3/uL (0.04-0.35); Eosinophils % (A) 2.1 %; HCT 43.6 % (37.2-46.3); HGB 14.2 d/dL (12.0-15.0); Lymphocytes # (A) 2.85 X 10*3/uL (0.90-5.00); Lymphocytes % (A) 39.4 %; MCH 31.5 pg (27.0-32.0); MCHC 32.6 d/dL (32.0-37.0); MCV 96.7 FL (80.0-97.0); Mean Platelet Volume 11.3 FL (9.5-12.2); Monocytes # (A) 0.41 X 10*3/uL (0.20-1.00); Monocytes % (A) 5.7 %; NRBC Per 100 WBC 0 X 10*3/uL (0.00-0.01); Neutrophils % (A) 52.4 %; Platelet Count 225 X 10*3/uL (140-440); RBC 4.51 X 10*6/uL (4.10-5.20); RDW 13.3 % (11.5-14.5); WBC 7.24 X 10*3/uL (4.50-10.00)
[2022-10-01 20:13] LABS: ALT 35 U/L (8-44); AST 24 U/L (13-35); Albumin 4.4 d/dL (3.8-4.9); Alkaline Phosphatase 109 U/L (41-126); BUN/Creat Ratio 27.86 Ratio (12.00-20.00); Blood Urea Nitrogen 19.5 mg/dL (9.0-27.0); Calcium 9.9 mg/dL (8.7-10.3); Carbon Dioxide 22.2 mmol/L (21.6-31.8); Chloride 104 mmol/L (96-109); Chol/HDL Ratio 3.75 Ratio; Globulin 2.1 d/dL (1.6-3.3); Glucose 123 mg/dL (70-110); LDL Cholesterol,Calculated 85.9 mg/dL (0.0-131.0); Potassium 4.4 mmol/L (3.5-5.5); Sodium 138 mmol/L (135-145); Total Bilirubin 0.7 mg/dL (0.3-1.2); Total Protein 6.5 d/dL (6.2-8.2)
== END | disposition home or self-care (01) ==
LOC: LABWHC1 11:32
PROVIDERS: ATTEND Family Medicine
DX: E11.9 Type 2 diabetes mellitus without complications (principal)
CPT/HCPCS: 36415; 80053; 80061; 83036; 85025

== ENCOUNTER → 2023-10-06 | Outpatient (CLI) | payer OTHER ==
--- NOTE | 2023-10-26 13:05 | MM ---
Reason for Exam: Screening (asymptomatic). Last mammogram was performed 1 year(s) and 7 month(s) ago. Patient History: Menarche at age 12. First Full-Term at age 29. Left ovary removed at age 45. Right ovary removed at age 45. Hysterectomy at age 45. Postmenopausal. Endometrial cancer, age 45. Maternal grandmother had ovarian cancer, age 40. Risk Values: Carlita 5 year model risk: 1.9%. NCI Lifetime model risk: 8.4%. Prior Study Comparison: 09/05/2020 Bilateral Screening Mammogram, [facility]. 03/17/2021 Bilateral Diagnostic Mammogram, [facility]. 03/04/2022 Bilateral MG 3D screening mammo w/cad, [facility]. Tissue Density: There are scattered areas of fibroglandular density. Findings: Analyzed By CAD. There is no suspicious group of microcalcifications or new suspicious mass in either breast. 9 appearing calcifications. Overall Assessment: Benign, BI-RAD 2 Management: Screening Mammogram of both breasts in 1 year. . Patient should continue monthly self-breast exams. A clinical breast exam by your physician is recommended on an annual basis. This exam should not preclude additional follow-up of suspicious palpable abnormalities. Note on Carlita scores and lifetime risk: 1. A Carlita score greater than 3% is considered moderate risk. If this is the case, consider specialist referral to assess eligibility for a risk reducing agent. 2. If overall lifetime risk for the development of breast cancer is 20% or higher, the patient may qualify for future screening with alternating mammogram and breast MRI. Electronically signed and approved by: Dequan Ziegler M.D. Radiologis
== END | disposition home or self-care (01) ==
LOC: RADMAMWWP 12:00
PROVIDERS: ATTEND Family Medicine
DX: Z12.31 Encounter for screening mammogram for malignant neoplasm of breast
CPT/HCPCS: 77063; 77067